=== PATIENT | female | born 1945 | race Caucasian/White ===

== ENCOUNTER 2018-09-27 08:23 | Day surgery (SDC) | payer OTHER ==
[~2018-09-27] VITALS: Ht 152.4 cm; Wt 63.1 kg
--- NOTE | 2018-09-27 09:18 | PREAC ---
Date/Time of Note Date/Time of Note DATE: 09/27/18 TIME: 09:16 Anesthesia Eval and Record Evaluation Time Pre-Procedure Interview DATE: 09/27/18 TIME: 09:16 Age 73 Sex female NPO: 8 hrs Preoperative diagnosis SCREENING Planned procedure COLONOSCOPY Past Medical History Past Medical History: Includes Cardio: HTN, Dyslipidemia Endo: Diabetes Surgery & Anesthesia Issues No known issue Meds Anticoagulation: No Beta Glen within 24 hr: No Reason Beta Glen not given: Pt. not on B-Glen Meds reviewed: Yes Allergies Allergies Reviewed: Yes Labs/Studies Labs Reviewed: Reviewed by anesthesiologist test: N/A Pre-procedure Exam Airway: Adequate mouth opening, Adequate thyromental dist Mallampati: Mallampati II Teeth: Normal Lung: Normal Heart: Normal ASA Physical Status ASA physical status: 2 Emergency: None Planned Anesthetic General/MAC: MAC Planned Pain Management Parenteral pain med Pre-operative Attestations Prior to commencing anesthesia and surgery, the patient was re-evaluated, there was verification of: *The patient's identity *The results of appropriate recent lab work and preoperative vital signs *The above evaluation not changing prior to induction *Anesthetic plan, risk benefits, alternative and complications discussed with patient/family; questions answered; patient/family understands, accepts and wishes to proceed. MECCA CARTER Sep 27, 2018 09:18
[2018-09-27] MEDS ORDERED: LIDOCAINE 2% (SDV) 5 ML INJ ONE (09:24)
[2018-09-27] MEDS ORDERED: PROPOFOL 40 ML ONE (09:24)
[2018-09-27 09:30] VITALS: Ht 152.4 cm; Wt 63.1 kg
[2018-09-27] MEDS ORDERED: ASPIRIN (09:34)
[2018-09-27] MEDS ORDERED: AMLODIPINE (09:34)
[2018-09-27] MEDS ORDERED: CARVEDILOL (09:34)
[2018-09-27] MEDS ORDERED: LOSARTAN (09:34)
[2018-09-27] MEDS ORDERED: CHLORTHALIDONE (09:34)
[2018-09-27] MEDS ORDERED: ATORVASTATIN (09:34)
[2018-09-27] MEDS ORDERED: METFORMIN (09:34)
--- NOTE | 2018-09-29 07:59 | PAC ---
Date/Time of Note Date/Time of Note DATE: 09/29/18 TIME: 07:58 Post-Anesthesia Notes Post-Anesthesia Note Last documented vital signs temp 98.2, bp 110/71, O2 sat 98% Activity: WNL Respiratory function: WNL Cardiovascular function: WNL Mental status: Baseline Pain reasonably controlled: Yes Hydration appropriate: Yes Nausea/Vomiting absent: Yes MECCA CRATER Sep 29, 2018 07:59
== END 2018-09-27 12:31 | disposition home or self-care (01) ==
LOC: GIL 08:23
PROVIDERS: ATTEND Internal Medicine Gastroenterology
DX: Z12.11 Encounter for screening for malignant neoplasm of colon (principal); K64.8 Other hemorrhoids; E11.9 Type 2 diabetes mellitus without complications; I10 Essential (primary) hypertension; E78.5 Hyperlipidemia, unspecified
CPT/HCPCS: 45378; 82962; Z7610